=== PATIENT | male | born 2000 | race African-American/Black ===

== ENCOUNTER 2021-05-22 08:48 | Emergency (ER) | payer OTHER ==
[~2021-05-22] VITALS: Ht 180.3 cm; Wt 68.0 kg
[2021-05-22 08:55] VITALS: BP 120/72
--- NOTE | 2021-05-22 10:13 | NUR ---
NOVEL AND LISA SWABS COLLECTED AND WALKED TO LAB
--- NOTE | 2021-05-22 12:05 | NUR ---
called lobby and no answer x3
--- NOTE | 2021-05-22 13:15 | NUR ---
called lobby/tent and no answer x3.
--- NOTE | 2021-05-22 16:49 | NUR ---
PATIENT ELOPED FROM FACILITY. DISCHARGE INSTRUCTIONS NOT GIVEN TO PATIENT. DR. BENNETT NOTIFIED.
--- NOTE | 2021-05-22 16:49 | NUR ---
Patient eloped. Made call out and left message with patient regarding NEGATIVE covid result.
== END 2021-05-22 16:49 | disposition left against medical advice (07) ==
LOC: MED 08:48
DX: B34.9 Viral infection, unspecified (principal); Z20.822 Contact with and (suspected) exposure to COVID-19
CPT/HCPCS: 87426; 99283; U0003